=== PATIENT | male | born 1990 | race Two or more races ===

== ENCOUNTER → 2023-12-25 | Outpatient (CLI) | payer BC ==
[2023-12-25 16:32] LABS: FOLLICLE STIMULATING HORMONE 4.6 mIU/ML (1.4-18.1)
[2023-12-25 16:34] LABS: ESTRADIOL 31.2 PG/ML (<39.8)
== END ==
LOC: M PLALAB 11:55
PROVIDERS: ATTEND Physician Assistant
DX: E29.1 Testicular hypofunction (principal)